=== PATIENT | female | born 1995 | race Caucasian/White ===

== ENCOUNTER 2017-06-22 11:46 | Emergency (ER) | payer OTHER ==
[2017-06-22 11:48] VITALS: BP 115/73; PULSE 111; RESP 15; TEMP 98.8; O2SAT 97
--- NOTE | 2017-06-22 11:53 | PD ---
Physical Exam Date Seen by Provider: Jun 22, 2017 Time Seen by Provider: 11:51 Narrative 22-year-old Afro-[place] female presents to emergency Department with upper respiratory symptoms including headaches, sore throat, and fevers. Patient states she had a flu shot last week she has been sick ever since. Pain is currently 8 out of 10. Patient states episode of vomiting Wednesday night. Patient has nausea today. No diarrhea. She has no known drug allergies. Data Data Last Documented VS Vital Signs Date Time Temp Pulse Resp B/P (MAP) Pulse Ox O2 Delivery O2 Flow Rate FiO2 06/22/17 11:48 98.8 111 15 115/73 (87) 97 MDM Medical Record Reviewed: Yes Supervised Visit with HERO: Yes Narrative Course Patient is medically stable. Vital signs are stable. Rapid strep and influenza are ordered. Condition: Stable Hong Renee Jun 22, 2017 11:53
[2017-06-22] MEDS ORDERED: AMOX500C PO (12:43)
[2017-06-22] MEDS ORDERED: MAGICPED SWISH-SWAL (12:43)
[2017-06-22] MEDS ORDERED: IBUP-232 PO (12:43)
--- NOTE | 2017-06-22 12:43 | PD ---
HPI Chief Complaint: ENT Complaint Time Seen by Provider: 12:30 Travel History International Travel<30 days: No Contact w/Intl Traveler<30days: No Traveled to known affect area: No History of Present Illness HPI 22-year-old female presents to the emergency Department with complaint of sore throat 3 days. Reports subjective fever. Has not taken her temperature cannot reports MAXIMUM TEMPERATURE. Denies cough, ear pain, and. Denies lump in throat, difficulty swallowing, unusual drooling. Reports painful swallowing. Reports headache. Says she vomited one time on Wednesday. Denies abdominal pain. Has been taking TheraFlu and Tylenol for symptom management. Has no other medical complaints. No one else with similar symptoms. Rates pain 8/10. Describes pain as a burning sensation. Pain is aggravated with swallowing. No known allergies. Received the influenza vaccine 1 week ago. No other modifying factors or associated signs and symptoms. PFSH Past Medical History Medical History: Denies Significant Hx Tetanus Vaccination: Unknown Influenza Vaccination: No ?: Not Past Surgical History Surgical History: No Previous Surgery Social History Alcohol Use: No Tobacco Use: No Substance Use: No Allergies-Medications (Allergen,Severity, Reaction): Coded Allergies: No Known Allergies (Unverified , 06/22/17) Reported Meds & Prescriptions Reported Meds & Active Scripts Active Ibuprofen 600 Mg Tab 600 Mg PO Q6H PRN Magic Mouthwash Pediatric/Adult Liq (Lidocaine/Diphenhydr/Alum/Mg/Simeth) 60 Ml Susp 5 Ml SWISH-SWAL Q3HR PRN Each 5mL contains: Diphenydramine 4.5mg, Viscous Lidocaine 2% 10mg, Maalox Advanced Regular Strength 2.7ml Amoxicillin 500 Mg Cap 500 Mg PO BID 10 Days Review of Systems Except as stated in HPI: all other systems reviewed are Neg Physical Exam Narrative GENERAL: Well-nourished, well-developed black female patient, in no acute distress; afebrile, nontoxic-appearing SKIN: Warm and dry. No rash. HEAD: Atraumatic. Normocephalic. EYES: Pupils equal and round at 3 mm with brisk reaction. No scleral icterus. No injection or drainage. PERRLA. ENT: Mucosa pink and dry. Pharynx with 2+ tonsils; with erythema, exudate, and edema. No Uvular edema. No uvular, palatal, or tonsillar deviation. Airway patent. Voice is hoarse. EARS: Bilateral pinnae and external canals appear within normal limits. Bilateral tympanic membranes without erythema, dullness or perforation.. NECK: Trachea midline. Anterior cervical lymphadenopathy and tenderness. CARDIOVASCULAR: Regular rate and rhythm. No murmur appreciated. RESPIRATORY: No accessory muscle use. Clear to auscultation. Breath sounds equal bilaterally. GASTROINTESTINAL: Abdomen soft, non-tender, nondistended. Hepatic and splenic margins not palpable. Bowel sounds are active 4 quadrants. MUSCULOSKELETAL: No obvious deformities. No clubbing. No cyanosis. No edema. NEUROLOGICAL: Awake and alert. Oriented 3. No obvious cranial nerve deficits. Motor grossly within normal limits. Normal speech. Moves all extremities. PSYCHIATRIC: Appropriate mood and affect; insight and judgment normal. Data Data Last Documented VS Vital Signs Date Time Temp Pulse Resp B/P (MAP) Pulse Ox O2 Delivery O2 Flow Rate FiO2 06/22/17 13:08 91 06/22/17 11:48 98.8 15 97 Orders Orders Group A Rapid Strep Screen (06/22/17 11:53) Influenzae A/B Antigen (06/22/17 11:53) [facility] Medical Decision Making Medical Screen Exam Complete: Yes Emergency Medical Condition: Yes Medical Record Reviewed: Yes Differential Diagnosis Strep pharyngitis, viral pharyngitis, less likely peritonsillar abscess Narrative Course 22-year-old female skull exam consistent with exudative pharyngitis. Patient is afebrile and nontoxic-appearing. Ibuprofen administered in the ER. Rapid Strep and influenza pending. 1312: Influenza negative. Rapid strep positive. Amoxicillin, Magic mouthwash , ibuprofen prescribed for home. Instructed patient to follow up with primary care provider. Patient verbalizes understanding and agreement with treatment plan. Patient is medically cleared and stable for discharge. Discussed reasons to return to the emergency department. Patient agrees with treatment plan. The patients vital signs are stable and the patient is stable for outpatient follow-up and treatment. Patient discharged home, stable and in no acute distress. Diagnosis Primary Impression: Strep throat Referrals: [facility] Primary Care Physician Patient Instructions: General Instructions, Pharyngitis (ED), Strep Throat (ED) Departure Forms: School Release, Return to School Date: Jun 24, 2017 Tests/Procedures, Work Release Enter return to work date: Jun 24, 2017 Additional Instructions: Take Antibiotics as prescribed and complete full course of antibiotics Throw away and change your toothbrush 24 hours after starting antibiotics Get plenty of sleep/rest Rest your voice Drink plenty of fluids to prevent dehydration Use warm saltwater gargles to soothe throat pain Use an air humidifier/turn off ceiling fans Use throat lozenges as needed for sore throat Use ibuprofen or acetaminophen as needed to relieve pain and fever Follow-up with your primary care provider within 2-4 days Return immediately to the emergency department with worsening of symptoms Med/Other Pt SpecificInfo: Prescription(s) given Scripts Ibuprofen (Ibuprofen) 600 Mg Tab 600 MG PO Q6H Y for PAIN, #20 TAB 0 Refills Prov: Tere Nieto 06/22/17 Esimutpmwilprft-Rtjhxrjlh-Lek-Alum-Simeth Liq (Magic Mouthwash Pediatric/Adult Liq) 60 Ml Susp 5 ML SWISH-SWAL Q3HR Y for SORE THROAT, #60 ML 0 Refills Each 5mL contains: Diphenydramine 4.5mg, Viscous Lidocaine 2% 10mg, Maalox Advanced Regular Strength 2.7ml Prov: Tere Nieto 06/22/17 Amoxicillin (Amoxicillin) 500 Mg Cap 500 MG PO BID for Infection for 10 Days, #20 CAP 0 Refills Prov: Tere Nieto 06/22/17 Disposition: 01 DISCHARGE HOME Condition: Stable Tere Nieto Jun 22, 2017 12:43
[2017-06-22 13:08] VITALS: PULSE 91
== END 2017-06-22 13:21 | disposition home or self-care (01) ==
LOC: NEPK 11:46
DX: J02.0 Streptococcal pharyngitis (principal); R51 Headache; R11.0 Nausea
CPT/HCPCS: 87804; 87880; 99284